=== PATIENT | female | born 1955 | race Caucasian/White ===

== ENCOUNTER 2022-01-06 15:05 | Emergency (ER) | payer OTHER ==
[~2022-01-06] VITALS: Ht 177.8 cm; Wt 140.6 kg
[~2022-01-06 15:05] MED LIST: BLACK COHOSH540 MG PO; CALCIUM CITRAT250 MG PO; EVENING PRIMRO500 MG PO; FLAX SEED OIL1000 MG PO; FLEXERIL PO; GLUCOPHAGE1000 MG PO; LECITHIN PO; LOW DOSE ASPIRI81 M1 PO; NITROSTAT0.4 MG SL; NUCYNTA75 MG PO; PRAVASTATIN SOD20 MG PO; PRINIVIL40 MG PO; ULTRAM 50MG TAB50 MG PO; XANAX 0.5 MG0.5 M1 PO; ZOLOFT100 MG PO
[2022-01-06 16:20] VITALS: BP 195/71
== END 2022-01-06 16:20 | disposition home or self-care (01) ==
LOC: M.ERS 15:05
DX: S61.511A Laceration without foreign body of right wrist, initial encounter (principal); E11.9 Type 2 diabetes mellitus without complications; F17.210 Nicotine dependence, cigarettes, uncomplicated; Z88.1 Allergy status to other antibiotic agents; Z88.5 Allergy status to narcotic agent; Z98.890 Other specified postprocedural states; Z90.49 Acquired absence of other specified parts of digestive tract; Z88.8 Allergy status to other drugs, medicaments and biological substances; W22.8XXA Striking against or struck by other objects, initial encounter; Y93.89 Activity, other specified; Y92.89 Other specified places as the place of occurrence of the external cause; Y99.8 Other external cause status